=== PATIENT | male | born 1935 | race Caucasian/White ===

== ENCOUNTER → 2018-05-17 14:14 | Outpatient (CLI) | payer MEDICARE, SELFPAY ==
[2018-05-17 15:13] LABS: Add Manual Diff / Slide Review NO; Basophils Percent Auto 0.2 % (0-2); Eosinophils Percent Auto 2.4 % (2-4); Hematocrit 38.5 % (41-53); Hemoglobin 13.5 g/dL (13.5-17.5); Lymphocytes Percent Auto 17.4 % (25-40); Mean Corpuscular Hemoglobin 32.6 PG (26-34); Monocytes Percent Auto 8.6 % (3-14); Neutrophils Absolute Auto 3200 /uL (3000-5900); Neutrophils Percent Auto 71.4 % (50-75); Platelet Count 160 X10^3/uL (150-400); Red Blood Cell Count 4.14 X10^6/uL (4.5-5.9); Red Cell Distribution Width 13.8 % (11.6-14.8); White Blood Cell Count 4.5 X10^3/uL (4.5-11.0)
[2018-05-17 16:06] LABS: BUN Creatinine Ratio 32.9 (6-22); Blood Urea Nitrogen 23 mg/dL (9-20); Calcium 9.8 mg/dL (8.4-10.2); Carbon Dioxide 30 mmol/L (22-32); Chloride 102 mmol/L (98-107); Estimated Glomerular Filt Rate > 60.0 mL/min (>60); Glucose 105 mg/dL (80-110); HEMOLYSIS < 15 (0-50); Sodium 142 mmol/L (137-145)
== END ==
PROVIDERS: PCP Family Medicine; Visit Provider Orthopaedic Surgery Orthopaedic Surgery of the Spine
DX: Z01.818 Encounter for other preprocedural examination (principal); Z01.812 Encounter for preprocedural laboratory examination
CPT/HCPCS: 36415; 80048; 85025; 93005

== ENCOUNTER 2018-05-24 10:38 | Day surgery (SDC) | payer MEDICARE, SELFPAY ==
[2018-05-21 15:14] VITALS: BMI 20.9
[2018-05-24] VITALS (7 sets, daily range): BP systolic 123–156; BP diastolic 63–85; PULSE 51–75; RESP 12–17; TEMP 36.2–36.4; O2SAT 95–98; BMI 19.6
--- NOTE | 2018-05-24 | DI.RAD.S_ITS ---
PROCEDURE: XR LUMBAR SPINE 1V INDICATIONS: TLIF TECHNIQUE: Single view of the lumbar spine were acquired. COMPARISON: None. IMPRESSION: Single lateral image of the lumbar spine obtained with a mobile image intensifier demonstrating surgical instrumentation. Dictated by: Gautam Collier M.D. on 05/24/2018 at 14:31 Approved by: Gautam Collier M.D. on 05/24/2018 at 14:31
--- NOTE | 2018-05-24 11:11 | SUR.PREOP ---
States that he was doing 'serious' yard work yesterday. Multiple bruises scratches, on hands and arms; two bandaids on LUE (regular and large sized). at bedside. Alert/oriented. Voided.
[2018-05-24] MEDS: LACTATED RINGERS 1,000 ML 42 ML IV (11:18)
--- NOTE | 2018-05-24 11:39 | PC.NURSE ---
yellow ring/band given to in the presence of the patient.
[2018-05-24] MEDS: CLINDAMYCIN 600 MG/50 ML PIGGYBACK 200 MG IV (11:54)
--- NOTE | 2018-05-24 12:17 | SUR.OPER ---
Prone on spine table, head in foam head support, padded chest and pelvic supports, gel pad at knees, lower legs supported by pillows; nipples, genitalia and toes free of pressure, arms secured on foam padded arm boards at <90 degrees abduction. Tape over blanket at thigh secured to table.
[2018-05-24] MEDS: BUPIVACAINE 0.25% W/ EPI VIAL 30 ML INJ (12:34)
--- NOTE | 2018-05-24 12:54 | PM.OP.1 ---
Operative Date/Time/Diagnoses Date of procedure: 05/24/18 Time of procedure: 11:54 Pre-op diagnosis: 1. L2-3 spinal stenosis. 2. Spondylolisthesis Post-op diagnosis: same Procedure & Clinicians Procedure: 1. L2-3 laminectomy with bilateral partial facetectomies 2. Utilization of microsurgical technique and operating microscope Same procedure as scheduled: Yes Indications: Patient has been having chronic back pain and worsening lumbar radiculopathy. Patient failed multiple conservative management with worsening pain weakness and numbness in her lower extremity. Patient has been having difficulty performing activity of daily living. After discussing risks benefits of treatment options, patient elected proceed with surgery. Surgeon: Nancy Lam Educational Adviser: Brynn Laboy Click Yes if Unassisted: No Anesthesia Type: General Operative Notes Closure Type: primary Specimen(s): none sent Estimated Blood Loss (mL): 50 Blood products transfused: none Procedure in detail: Patient was seen in the preoperative area. Risks and benefits of the surgery was discussed with the patient. Informed consent was obtained from the patient and placed in the chart. Surgical site was marked. Patient was taken to the operative room. General anesthesia was administered. Prophylactic antibiotic was given to the patient less than 30 min before the incision was made. Patient was placed into a prone position on the Inder table. Patient's back was then prepped and draped in the sterile fashion. Time-out was performed at this time. Using AP and lateral C-arm imaging the interval between [] was identified and marked on patient's back. A 2 inch incision in the midline was made over the L2-3 level. The fascia was incised in line with skin incision. Dissection was made down to the level of the lamina using Bovie and a Monk. Self retaining retractor was placed inside the wound. Using microsurgical technique and operating microscope, a L2 laminectomy was performed using a Kerrison rongeur. Liagamentum flavum was resected at the site of the laminotomy. Either side of the dura was exposed. Bilateral partial facetcomies was performed to further decompress the lateral recess. Patient was found to have significantly hypertrophied ligamentum flavum was well as bilateral facet joints at L2-3 level. The ligamentum flavum and medial aspect of the facet was removed in order to decompress the epidural space. Patient's dura was well visualized and fully decompressed after decompression was completed. After the laminectomy was completed, the area medial lateral superior and inferior to the area of the laminectomy was inspected and explored using a micro curette. No other impinging structure was identified. The wound was then irrigated with sterile normal saline. The deep fascia was closed with 1-0 Vicryl. The subcutaneous tissue was closed with 2-0 Vicryl. The skin was closed with 4-0 Monocryl. Patient tolerated the procedure well. There were no complications. Patient was transferred recovery room in stable condition. Complications: none Condition: stable Disposition: PACU Plan for aftercare: D/c home
[2018-05-24] MEDS: OXYCODONE/ACETAMINOPHEN 5/325 TABLET 1 TAB PO (14:05)
== END 2018-05-24 14:25 | disposition home or self-care (01) ==
PROVIDERS: PCP Family Medicine; Visit Provider Orthopaedic Surgery Orthopaedic Surgery of the Spine
PROC: (CPT 63047; principal; 2018-05-24 12:15)
DX: M48.061 Spinal stenosis, lumbar region without neurogenic claudication (principal); M43.10 Spondylolisthesis, site unspecified; M54.16 Radiculopathy, lumbar region
CPT/HCPCS: 63047; 72020; 76000; J1100; J2704; J3010

== ENCOUNTER → 2019-07-29 17:03 | Outpatient (CLI) | payer MEDICARE, SELFPAY ==
--- NOTE | 2019-07-29 | DI.MRI.S_ITS ---
PROCEDURE: MR LUMBAR SPINE WO CON INDICATIONS: Spinal stenosis, lumbar region without neurogenic TECHNIQUE: Noncontrast sagittal T1 spin echo and T2 fast echo, coronal T2, sagittal STIR, axial T1 and T2 fast spin echo through the lumbar spine. COMPARISON: [facility], MR, MR LUMBAR SPINE WO/W CON, 03/12/2018, 12:04. [facility], CR, XR LUMBAR SPINE 2 OR 3 VIEWS, 07/19/2019, 14:30. [facility], MR, L-SPINE WITHOUT CONTRAST, 01/09/2014, 17:56. FINDINGS: Image quality: Excellent. Alignment and Curvature: 5 lumbar type vertebral bodies are present by plain film. There is mild diffuse leftward curvature of the lumbar spine. There is mild grade 1 retrolisthesis of L1 on L2, L2 on L3, and L3 on L4. Mild grade 1 anterolisthesis of L5 on S1 is present, as before. Bone Marrow: Marrow is of normal overall signal. No acute vertebral body compression fractures. L4-L5 fusion has been performed. There is moderate reactive signal within the endplates adjacent to the L1-L2 intervertebral disc. Mild reactive signal within the template adjacent to the T12-L1, L2-L3, L3-L4, and L5-S1 intervertebral discs. Spinal Cord: Conus medullaris terminates at the mid L2 level. Visualized cord demonstrates normal signal and size. Paraspinous Soft Tissues: No paravertebral masses. L1-L2: Severe disc height loss and desiccation. Mild diffuse disc bulge. Mild facet and ligamentum flavum hypertrophy. Mild canal stenosis. Moderate bilateral foraminal stenosis. No change. L2-L3: Severe disc height loss and desiccation. Moderate diffuse disc bulge/osteophyte. Mild facet hypertrophy bilaterally. Moderate canal stenosis. Moderate bilateral foraminal stenosis. No change. L3-L4: Moderate disc height loss and desiccation. Mild diffuse disc bulge. Moderate bilateral facet hypertrophy. Mild ligamentum flavum hypertrophy. Moderate canal stenosis. Mild bilateral foraminal stenosis. No change. L4-L5: Status post fusion. Moderate bilateral facet hypertrophy. Mild residual disc osteophyte complex. Moderate canal stenosis. Moderate bilateral foraminal stenosis. No change. L5-S1: Mild disc height loss and desiccation. Mild diffuse disc bulge. Mild bilateral facet hypertrophy. Mild canal stenosis. Moderate to high-grade left and moderate right foraminal stenosis. Possible mild left L5 nerve root compression. No change. IMPRESSION: 1. Post surgical sequelae of L4-L5. 2. Multilevel degenerative disc and facet disease, as well as ligamentum flavum hypertrophy and epidural lipomatosis. 3. Multilevel canal stenoses, worst at L2-L3, L3-L4, and L4-L5, where there are moderate canal stenoses present. 4. Multilevel foraminal stenoses, worst at L5-S1 on the left, where there is possible L5 nerve root compression. Dictated by: Nia Knapp M.D. on 07/30/2019 at 8:33 Approved by: Nia Knapp M.D. on 07/30/2019 at 8:42
== END ==
PROVIDERS: PCP Family Medicine; Visit Provider Orthopaedic Surgery Orthopaedic Surgery of the Spine
DX: M48.061 Spinal stenosis, lumbar region without neurogenic claudication (principal); M48.07 Spinal stenosis, lumbosacral region; M51.36 Other intervertebral disc degeneration, lumbar region; M51.37 Other intervertebral disc degeneration, lumbosacral region; M43.17 Spondylolisthesis, lumbosacral region; E88.2 Lipomatosis, not elsewhere classified; Z98.1 Arthrodesis status
CPT/HCPCS: 72148